=== PATIENT | male | born 1960 | race Caucasian/White ===

== ENCOUNTER → 2020-11-16 | Day surgery (SDC) | payer OTHER ==
[~2020-11-16] VITALS: Ht 172.7 cm; Wt 88.2 kg
[~2020-11-16] MED LIST: AMLODIPINE-BEN1 EAC3 PO; ASPIRIN EC81 MG PO; COQ-1030 MG PO; LIPITOR20 MG PO; PERCOCET 5-3251 EACH PO; VIT D3 PO
== END | disposition home or self-care (01) ==
LOC: FAS 09:57
DX: Z12.11 Encounter for screening for malignant neoplasm of colon (principal); D12.3 Benign neoplasm of transverse colon; K57.30 Diverticulosis of large intestine without perforation or abscess without bleeding; C43.9 Malignant melanoma of skin, unspecified; C78.00 Secondary malignant neoplasm of unspecified lung; I25.10 Atherosclerotic heart disease of native coronary artery without angina pectoris; E78.5 Hyperlipidemia, unspecified; I10 Essential (primary) hypertension; Z86.010 Personal history of colon polyps; Z87.891 Personal history of nicotine dependence; Z80.0 Family history of malignant neoplasm of digestive organs; Z91.030 Bee allergy status; Z88.0 Allergy status to penicillin; Z79.82 Long term (current) use of aspirin; Z79.899 Other long term (current) drug therapy
CPT/HCPCS: J2370; J7120